=== PATIENT | male | born 1975 ===

== ENCOUNTER 2016-07-03 14:57 | Emergency (ER) | payer OTHER ==
[~2016-07-03] VITALS: Ht 175.3 cm; Wt 81.3 kg
[2016-07-03 15:17] VITALS: TEMP 36.9; Ht 175.3 cm; Wt 81.3 kg
[2016-07-03] MEDS ORDERED: SULF800T23 PO (15:38)
[2016-07-03] MEDS ORDERED: CEPH500C2 PO (15:38)
[2016-07-03 15:45] VITALS: BP 129/82; PULSE 56; O2SAT 96
--- NOTE | 2016-07-03 15:46 | EMERGENCY ROOM VISIT NOTE ---
ED Visit Note First contact with patient: 15:28 CHIEF COMPLAINT: I have a lump under my left arm. HISTORY OF PRESENT ILLNESS: Mr. King is an 40-year-old male who ambulates into the ED complaining of a lump in the left axillary area. Patient reports a proximally 6 days ago he noted some mild tenderness over the left axillary area. Initially it was mild and has gradually increased in intensity. Then 3 days ago he noticed a small lump starting to form. Since that time the lump has gradually increased in intensity and he has noted some redness around the lump. Associated with the lump he reports he has a stinging pain. He rates his discomfort 4/10. The pain is nonradiating. Pain worsens with palpation. He has not identified any alleviating factors related to the pain. He does report he has been taken ibuprofen and has had mild relief of his discomfort. He denies any pricila associated symptoms but does report yesterday he felt like he was a little tired and a little warm but was not able to define a fever. He denies chills, sweats, other skin eruptions, other skin color changes, headache, upper respiratory tract symptoms, cough, wheezing, shortness of breath , chest pain, abdominal pain, nausea, vomiting, recent trauma to the area in question, previous subcutaneous abscesses/infections, left upper extremity weakness/numbness/tingling. REVIEW OF SYSTEMS: As noted above in History of Present Illness; a body systems were reviewed with the patient and found to be negative unless noted above otherwise. PAST MEDICAL HISTORY: Hypertension, allergies to metal. CURRENT MEDICATION: Patient denies. ALLERGIES TO MEDICATION: Patient denies. SOCIAL HISTORY: Patient is currently employed; he feels safe in his home environment; he denies tobacco use and admits to alcohol use. PHYSICAL EXAM: Vital Signs: Date Time Temp Pulse Resp B/P Pulse Ox O2 Delivery O2 Flow Rate FiO2 07/03/16 15:17 36.9 59 16 134/84 96 Room Air General: 40 year-old male in no acute distress, nontoxic appearing, afebrile and hemodynamically stable. Neurological: Awake, alert and oriented to person, place and time. Answering questions appropriately and following commands. Skin: Warm, dry and pink. Left Maxillary Area: There is an indurated area which measures about 1.8 cm in diameter. It is not fluctuant or pointing. There is no drainage from the wound. There is a zone of inflammation around it but no lymphangitis. Thorax: Lungs sounds are clear to auscultation and equal bilaterally with symmetrical chest wall movement. No wheezing, rales or rhonchi. No increased respiratory effort. Abdomen: Flat, soft and nontender. Positive bowel sounds in all quadrants. No guarding or rigidity. ED COURSE: Patient is assessed as noted above. Patient was educated about his condition and instructed on his treatment plan; he verbalized understanding and agreement with this plan. CLINICAL IMPRESSION: Early abscess to the left axillary area. DISPOSITION: Patient discharged to home in stable condition; prior to departure he was reassessed and subjectively reported he was feeling the same. PLAN: Patient was encouraged use ibuprofen or acetaminophen as needed for pain and to put warm compresses over the area. Patient was prescribed Bactrim DS and Keflex and instructed on achieves. Patient was encouraged to follow-up with family physician or return to the ED in 36-48 hours for recheck. Patient was encouraged return the ED sooner for worsening/uncontrolled pain, fevers, red streaking, pus like drainage or any new/concerning symptoms.
== END 2016-07-03 15:49 | disposition home or self-care (01) ==
LOC: C.EDB 14:59 → C.EDD 15:49
DX: L02.412 Cutaneous abscess of left axilla (principal); I10 Essential (primary) hypertension

== ENCOUNTER 2016-07-05 19:23 | Emergency (ER) | payer OTHER ==
[~2016-07-05] VITALS: Ht 165.1 cm; Wt 81.2 kg
[~2016-07-05 19:23] MED LIST: CEPH500C2 PO; SULF800T23 PO
[2016-07-05 20:02] VITALS: BP 139/86; TEMP 36.8; Ht 165.1 cm; Wt 81.2 kg
[2016-07-05] MEDS ORDERED: XYLOCAINE 1%/SOD BICARB 20 ML VIAL INFIL ONE (20:15)
--- NOTE | 2016-07-05 20:58 | EMERGENCY ROOM VISIT NOTE ---
ED Visit Note First contact with patient: 20:05 Chief Complaint: Follow-Up - Cyst Draining History of Present Illness: Patient is a 40-year-old male who presents to the emergency department this evening for evaluation of a draining cyst under his LEFT arm. He was seen in this facility 2 days ago. He was placed on Keflex and Bactrim. He reports his symptoms have greatly improved. He reports draining from the cyst since yesterday. He was instructed to return for draining if the cyst opened. He reports a moderate result of symptoms rating his discomfort a 0/10. He reports no fevers, chills, with injection streaking, nausea, vomiting, or numbness/tingling into the extremity. The patient is not a diabetic. Medications: Reviewed and discussed with the patient. Allergies: No medication allergies. PMH: No pertinent past medical history. SHx: Patient is a 40-year-old male who lives locally. ROS: All pertinent positive and negative review of systems are appropriately documented in the History of Present Illness. Physical Exam: VITAL SIGNS - Vital signs and Nursing Notes were reviewed. GENERAL -40-year-old male, well-developed, well-nourished, and in no acute distress. SKIN -there is a small fluctuant palpable cyst noted in the LEFT axilla measuring 2.0 cm in diameter. There is a central area of open wound with active purulent drainage noted. There is surrounding induration without erythema or warmth to touch. NEURO - Patient is A&Ox3 and communicates appropriately with the provider. PROCEDURE: I examined the patient. Verbal consent was obtained to perform the procedure. After saline and Betadine cleansing and 1.0 mL of 1% buffered lidocaine anesthesia, the abscess was incised with a number 11 scalpel blade. A large amount of purulent material was released with more expressed by pressure. The abscess cavity was then copiously irrigated with sterile saline under pressure. Wound did not require packing. The area was cleaned with sterile saline and dressed with bacitracin and a bulky bandage. The patient tolerated the procedure well. ED Course: Previous ED visit note was reviewed by myself prior to patient evaluation. The wound was assessed as describe above. Patient states that the wound has greatly improved since previous visit. I did open the wound to facilitate greater drainage. The wound did not or car packing. He is currently on Keflex and Bactrim. He will remain on these antibiotics. He will follow-up with his primary care provider from today's visit or return for any changing or worsening symptoms. Patient discharged home afebrile and in good condition. In the evaluation and treatment of this patient, the following differential diagnoses were considered: Cellulitis, dermatitis, foreign body, lymphoma, amongst others. Impression: LEFT Axillary Abscess Discharge Instructions: You were seen in the Emergency Department for Incision and Drainage of a LEFT Axillary Abscess. Finish your antibiotics as prescribed. Look for signs of infection of the wound including: increased pain, swelling, foul discharge, streaking, or increased temperature. If any of these are noticed you should return to the Emergency Department for further assessment and treatment. As with any laceration you may have received nerve damage to the surrounding tissues. This damage may or may not be permanent. For pain control, you can use the following [id number] medicines (if >12 yo): - Regular strength (325mg/tab) Tylenol (acetaminophen) 2 tabs every 4-6 hours as needed. Do not exceed 12 tablets in a 24 hour period. Avoid taking more than 4 grams (4000 mg) of Tylenol per day. This includes any other sources of acetaminophen you may take on a regular basis. - Regular strength (200 mg/tab) Advil (ibuprofen) 1-2 tabs every 4-6 hours as needed. Do not exceed a dose of 3200 mg per day. Return to the emergency department if your symptoms worsen despite treatment course outlined above. Current/Historical Medications Scheduled Cephalexin Monohydrate (Keflex), 500 MG PO QID Sulfa/Trimethoprim (Bactrim Ds 800MG/160MG), 1 TAB PO BID Miscellaneous Medications None (Patient States No Home Meds) Allergies Uncoded Allergies: METALS (Allergy, Unknown, rash, 12/02/15) SEASONAL (Allergy, Unknown, congestion, 12/02/15) SUNSHINE (Allergy, Unknown, rash, 12/02/15) Vital Signs Date Time Temp Pulse Resp B/P Pulse Ox O2 Delivery O2 Flow Rate FiO2 07/05/16 21:12 62 18 97 Room Air 07/05/16 20:02 36.8 58 20 139/86 97 Room Air Departure Information Impression Primary Impression: Axillary abscess Dispostion Home / Self-Care Condition GOOD Referrals Mainali, Goldie, M.D. (PCP) Patient Instructions A Signature Page, My [facility] Additional Instructions You were seen in the Emergency Department for Incision and Drainage of a LEFT Axillary Abscess. Finish your antibiotics as prescribed. Look for signs of infection of the wound including: increased pain, swelling, foul discharge, streaking, or increased temperature. If any of these are noticed you should return to the Emergency Department for further assessment and treatment. As with any laceration you may have received nerve damage to the surrounding tissues. This damage may or may not be permanent. For pain control, you can use the following [id number] medicines (if >12 yo): - Regular strength (325mg/tab) Tylenol (acetaminophen) 2 tabs every 4-6 hours as needed. Do not exceed 12 tablets in a 24 hour period. Avoid taking more than 4 grams (4000 mg) of Tylenol per day. This includes any other sources of acetaminophen you may take on a regular basis. - Regular strength (200 mg/tab) Advil (ibuprofen) 1-2 tabs every 4-6 hours as needed. Do not exceed a dose of 3200 mg per day. Return to the emergency department if your symptoms worsen despite treatment course outlined above.
[2016-07-05 21:12] VITALS: PULSE 62; O2SAT 97
== END 2016-07-05 21:13 | disposition home or self-care (01) ==
LOC: C.EDB 19:25 → C.EDD 21:13
DX: L02.412 Cutaneous abscess of left axilla (principal)